=== PATIENT | female | born 1950 | race Caucasian/White ===

== ENCOUNTER 2017-07-27 03:14 | Emergency (ER) | payer OTHER ==
[2017-07-27 03:22] VITALS: BMI 28.1
--- NOTE | 2017-07-27 04:12 | ED PDOC ---
Arrival/HPI - History of Present Illness Time/Duration: > week Symptom Course: Unchanged Quality: Cramping Severity Level: 6 Context: Other (after meals) <Bridger Spears - Last Filed: 07/27/17 05:47> <August Bae DO - Last Filed: 07/27/17 06:36> - General Chief Complaint: Abdominal Pain Time Seen by Provider: 07/27/17 03:45 - History of Present Illness Narrative History of Present Illness (Text): 07/27/17 04:06 66F from [facility] w/ pmhx significant for cholecystectomy, HTN, HLD presents to [facility] ED w/ dull crampy mid-epigastric pain that started 1 week ago. Pain is worse immediately after eating. Patient has metallic taste in mouth after meals. Associated nausea, non-bloody, non-bilious vomiting. BM every 2 days which is normal for her. Denies recent sick contacts. Patient has had similar pain in the past that would resolve spontaneously. Patient had seen Dr. Clayton and was perscribed and H2 pelon, antibiotics cipro/flagyl and simethicone with minimal relief. Patient is scheduled to have appointment with GI on Saturday Denies: fevers, chills, chest pain, shortness of breath, diarrhea, numbness/ tingling in extremities, LE swelling PMH: HTN, HLD, boarderline diabetic (does not take any medications) PSH: Laparoscopic cholecystectomy ALL: NKDA SocialHx: From [facility], denies etoh, tobacco, recreational drug use. (Bridger Spears) Past Medical History - Provider Review Nursing Documentation Reviewed: Yes - Travel History Have you recently traveled outside [place] w/in the past 3 mons?: Yes - Past History Past History: Non-Contributing - Reproductive Menopause: Yes - Cardiac Hx Hypertension: Yes - Psychiatric Hx Substance Use: No <Bridger Spears - Last Filed: 07/27/17 05:47> Family/Social History - Physician Review Nursing Documentation Reviewed: Yes Family/Social History: Other (non-contributory) Smoking Status: no Hx Alcohol Use: No Hx Substance Use: No <Bridger Spears - Last Filed: 07/27/17 05:47> Allergies/Home Meds <Bridger Spears - Last Filed: 07/27/17 05:47> <Kathia STOVALLAugust - Last Filed: 07/27/17 06:36> Allergies/Adverse Reactions: Allergies No Known Allergies Allergy (Verified 07/27/17 03:22) Review of Systems - Physician Review All systems were reviewed & negative as marked: Yes - Review of Systems Constitutional: absent: Fevers, Night Sweats Eyes: absent: Vision Changes, Photophobia ENT: absent: Hearing Changes, Tinnitus, TMJ Pain Respiratory: absent: SOB, Cough, Sputum, Wheezing Cardiovascular: absent: Chest Pain, Palpitations, Calf Pain Gastrointestinal: Abdominal Pain (mid-epigastric), Nausea, Vomiting, Appetite Changes. absent: Diarrhea Genitourinary Female: absent: Dysuria, Frequency Musculoskeletal: absent: Arthralgias, Back Pain Skin: absent: Rash, Pruritis Neurological: absent: Headache, Dizziness, Focal Weakness Endocrine: Normal Hemo/Lymphatic: absent: Adenopathy Psychiatric: absent: Anxiety <Bridger Spears - Last Filed: 07/27/17 05:47> Physical Exam Vital Signs Reviewed: Yes Temperature: Afebrile Blood Pressure: Hypertensive Pulse: Regular Respiratory Rate: Apneic Appearance: Positive for: Well-Appearing, Non-Toxic Pain Distress: None Mental Status: Positive for: Alert and Oriented X 3 - Systems Exam Head: Present: Atraumatic, Normocephalic Extroacular Muscles: Present: EOMI Conjunctiva: Present: Normal Mouth: Present: Moist Mucous Membranes Neck: No: JVD Respiratory/Chest: Present: Clear to Auscultation. No: Respiratory Distress, Accessory Muscle Use Abdomen: Present: Tenderness (mid-epigastric tenderness). No: Distention, Peritoneal Signs Upper Extremity: Present: Normal Inspection, NORMAL PULSES Lower Extremity: Present: Normal Inspection, NORMAL PULSES Neurological: Present: GCS=15, CN II-XII Intact, Speech Normal Skin: Present: Warm Psychiatric: Present: Alert, Oriented x 3 <Bridger Spears Last Filed: 07/27/17 05:47> Vital Signs Temp Pulse Resp BP Pulse Ox 07/27/17 03:40 88 18 150/90 99 07/27/17 03:30 98.1 F 90 18 160/84 H 96 Medical Decision Making <Bridger Spears - Last Filed: 07/27/17 05:47> <August Bae DO - Last Filed: 07/27/17 06:36> ED Course and Treatment: 07/27/17 04:21 CBC/CMP/Lipase Anti-emetic- Zofran PO pepcid PO serial abd exams 07/27/17 05:47 K-Francesco is running no acute nausea/vomiting (Bridger Spears) - Lab Interpretations Narrative Lab Interpretation (Text): 07/27/17 05:00 Potassium 2.8- 40meq of PO potassium, 10meqK-Francesco x2 (Bridger Spears) Lab Results: 07/27/17 04:20 07/27/17 04:20 Lab Results 07/27/17 04:20: Sodium 141, Potassium 2.8 L*, Chloride 100, Carbon Dioxide 32, Anion Gap 12, BUN 13, Creatinine 0.8, Est GFR ( Amer) > 60, Est GFR (Non- Af Amer) > 60, Random Glucose 106, Calcium 10.4, Total Bilirubin 0.3, AST 28, ALT 20, Alkaline Phosphatase 74, Total Protein 7.2, Albumin 3.7, Globulin 3.5, Albumin/Globulin Ratio 1.1, Lipase 128 07/27/17 04:20: WBC 8.8, RBC 4.16, Hgb 10.3 L, Hct 32.4 L, MCV 77.9 L, MCH 24.8 L, MCHC 31.8, RDW 15.2 H, Plt Count 370, MPV 9.3, Gran % 55.5, Lymph % (Auto) 33.9, [place] % (Auto) 6.5 H, Eos % (Auto) 3.5, Baso % (Auto) 0.6, Gran # 4.90, Lymph # (Auto) 3.0, [place] # (Auto) 0.6, Eos # (Auto) 0.3, Baso # (Auto) 0.05 - Medication Orders Current Medication Orders: Potassium Chloride (Potassium Chloride 10 Meq/100 Ml) 10 meq in 100 mls @ 50 mls/hr IVPB Q2H VICTOR MANUEL Stop: 07/27/17 08:59 Last Admin: 07/27/17 05:01 Dose: 50 mls/hr eMAR Start Stop Document 07/27/17 05:01 CAMILO (Rec: 07/27/17 05:01 [facility] [id number]) Intravenous Solution Start Date 07/27/17 Start Time 05:01 End Date 07/27/17 End time 07:01 Total Infusion Time 120 Discontinued Medications Famotidine (Pepcid) 40 mg PO STAT STA Stop: 07/27/17 04:03 Last Admin: 07/27/17 04:30 Dose: 40 mg Ondansetron HCl (Zofran Tab) 8 mg PO STAT STA Stop: 07/27/17 04:02 Last Admin: 07/27/17 04:30 Dose: 8 mg Potassium Chloride (K-Dur 20 Meq Er Tab) 40 meq PO STAT STA Stop: 07/27/17 04:51 Last Admin: 07/27/17 05:01 Dose: 40 meq - 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 MIKEY has examined the patient and agrees with the treatment plan. <Bridger Spears - Last Filed: 07/27/17 05:47> Disposition/Present on Arrival - Present on Arrival Any Indicators Present on Arrival: No History of DVT/PE: No History of Uncontrolled Diabetes: No Urinary Catheter: No History of Decub. Ulcer: No History Surgical Site Infection Following: None <Bridger Spears - Last Filed: 07/27/17 05:47> - Disposition Have Diagnosis and Disposition been Completed?: Yes Disposition Time: 07:00 <August Bae DO - Last Filed: 07/27/17 06:36> - Disposition Diagnosis: Gastritis, Hypokalemia Disposition: HOME/ ROUTINE Condition: IMPROVED Prescriptions: Ondansetron HCl [Zofran] 4 mg PO Q6 PRN #20 tablet PRN Reason: Nausea/Vomiting Referrals: Omar Clayton MD [Primary Care Provider] - Follow up with primary Forms: [employer] (Mosotho)
[2017-07-27 04:39] LABS: BASO # 0.05 K/mm3 (0.0-2.0); BASO % 0.6 % (0.0-3.0); EOS # 0.3 (0.0-0.7); EOS % 3.5 % (1.5-5.0); GRAN # 4.9 (1.4-6.5); GRAN % 55.5 % (50.0-68.0); HEMOGLOBIN 10.3 g/dL (12.0-16.0); LYMPH % 33.9 % (22.0-35.0); MEAN CELL VOLUME 77.9 fl (80.0-105.0); MEAN CORPUSCULAR HEMOGLOBIN 24.8 pg (25.0-35.0); MEAN CORPUSCULAR HGB CONC 31.8 g/dl (31.0-37.0); MEAN PLATELET VOLUME 9.3 fl (7.0-11.0); MONO # 0.6 (0.1-0.6); MONO % 6.5 % (1.0-6.0); RBC 4.16 10^6/uL (3.5-6.1); RED CELL DISTRIBUTION WIDTH 15.2 % (11.5-14.5); WHITE BLOOD COUNT 8.8 10^3/ul (4.5-11.0)
[2017-07-27 04:49] LABS: ALB/GLOB RATIO 1.1 (1.1-1.8); ALBUMIN 3.7 g/dL (3.0-4.8); ALT/SGPT 20 U/L (7-56); AST/SGOT 28 U/L (14-36); BLOOD UREA NITROGEN 13 mg/dL (7-21); CALCIUM 10.4 mg/dL (8.4-10.5); GFR AFRICAN-AMERICAN > 60; GFR NON-AFRICAN AMERICAN > 60; LIPASE 128 U/L (23-300)
[2017-07-27] MEDS ORDERED: Potassium Chloride 20 mEq ER Tab PO STA (04:50)
--- NOTE | 2017-07-27 07:33 | ED PDOC ---
Physical Exam Vital Signs Temp Pulse Resp BP Pulse Ox 07/27/17 05:15 84 18 156/88 H 99 07/27/17 03:40 88 18 150/90 99 07/27/17 03:30 98.1 F 90 18 160/84 H 96 Medical Decision Making ED Course and Treatment: 07/27/17 07:31 Patient endorsed to me from previous shift. Patient's history reviewed with family. Family states patient experiences epigastric abdominal pain AFTER EATING for past week. She has prior history reportedly of "heartburn" and describes symptoms as similar to this. She denies chest "pain", she denies any bloody or dark urine or stool. Was recently treated by her PMD for gastritis. On re-exam, patient resting comfortably, receiving iv kcl replacement. Treatment plan reviewed with patient's family, plan to reassess patient with serial exams. 07/27/17 08:32 Potassium infusions completed. Patient re-examined. She has no pain. States no chest pain or shortness of breath and no exertional symptoms. Patient with no nausea or vomiting. Daughter states she has follow-up appointment this Saturday for endoscopy. I have advised recheck of her potassium levels. Patient and family express understanding. Discharge instructions provided by Dr. Bae. - Lab Interpretations Lab Results: 07/27/17 04:20 07/27/17 04:20 Lab Results 07/27/17 04:20: Sodium 141, Potassium 2.8 L*, Chloride 100, Carbon Dioxide 32, Anion Gap 12, BUN 13, Creatinine 0.8, Est GFR ( Amer) > 60, Est GFR (Non- Af Amer) > 60, Random Glucose 106, Calcium 10.4, Total Bilirubin 0.3, AST 28, ALT 20, Alkaline Phosphatase 74, Total Protein 7.2, Albumin 3.7, Globulin 3.5, Albumin/Globulin Ratio 1.1, Lipase 128 07/27/17 04:20: WBC 8.8, RBC 4.16, Hgb 10.3 L, Hct 32.4 L, MCV 77.9 L, MCH 24.8 L, MCHC 31.8, RDW 15.2 H, Plt Count 370, MPV 9.3, Gran % 55.5, Lymph % (Auto) 33.9, [place] % (Auto) 6.5 H, Eos % (Auto) 3.5, Baso % (Auto) 0.6, Gran # 4.90, Lymph # (Auto) 3.0, [place] # (Auto) 0.6, Eos # (Auto) 0.3, Baso # (Auto) 0.05 - Medication Orders Current Medication Orders: Potassium Chloride (Potassium Chloride 10 Meq/100 Ml) 10 meq in 100 mls @ 50 mls/hr IVPB Q2H VICTOR MANUEL Stop: 07/27/17 08:59 Last Admin: 07/27/17 06:39 Dose: 50 mls/hr eMAR Start Stop Document 07/27/17 06:39 CAMILO (Rec: 07/27/17 06:39 CAMILO [id number]) Intravenous Solution Start Date 07/27/17 Start Time 06:39 End Date 07/27/17 End time 08:39 Total Infusion Time 120 Discontinued Medications Famotidine (Pepcid) 40 mg PO STAT STA Stop: 07/27/17 04:03 Last Admin: 07/27/17 04:30 Dose: 40 mg Ondansetron HCl (Zofran Tab) 8 mg PO STAT STA Stop: 07/27/17 04:02 Last Admin: 07/27/17 04:30 Dose: 8 mg Potassium Chloride (K-Dur 20 Meq Er Tab) 40 meq PO STAT STA Stop: 07/27/17 04:51 Last Admin: 07/27/17 05:01 Dose: 40 meq Disposition/Present on Arrival - Present on Arrival Any Indicators Present on Arrival: No History of DVT/PE: No History of Uncontrolled Diabetes: No Urinary Catheter: No History of Decub. Ulcer: No History Surgical Site Infection Following: None - Disposition Have Diagnosis and Disposition been Completed?: Yes Diagnosis: Gastritis, Hypokalemia Disposition: HOME/ ROUTINE Disposition Time: 08:34 Patient Plan: Discharge Patient Problems: Current Active Problems Problem Status Onset Gastritis Acute Hypokalemia Acute Condition: GOOD Discharge Instructions (ExitCare): Gastritis, Hypokalemia (DC) Additional Instructions: Thank you for letting us take care of you today. The emergency medical care you received today was directed at your acute symptoms. If you were prescribed any medication, please fill it and take as directed. It may take several days for your symptoms to resolve. Return to the Emergency Department if your symptoms worsen, do not improve, or if you have any other problems. Please contact your doctor or call one of the physicians/clinics you have been referred to that are listed on the Patient Visit Information form that is included in your discharge packet. Bring any paperwork you were given at discharge with you along with any medications you are taking to your follow up visit. Our treatment cannot replace ongoing medical care by a primary care provider (PCP) outside of the emergency department. Thank you for allowing the [facility] team to be part of your care today. Follow up with your doctor in 2-3 days for re-evaluation and further management. Prescriptions: Ondansetron HCl [Zofran] 4 mg PO Q6 PRN #20 tablet PRN Reason: Nausea/Vomiting Referrals: Omar Clayton MD [Primary Care Provider] - Follow up with primary Forms: [employer] (Turkish)
[2017-07-27 08:39] VITALS: BP 137/80; PULSE 77; RESP 19; TEMP 97.8
[2017-07-27 08:43] VITALS: O2SAT 97
--- NOTE | 2017-07-27 16:49 | CARD ---
APPROVED REPORT EKG Measurement Heart [id number] <Conclusion> Normal sinus rhythm Minimal voltage criteria for LVH, may be normal variant Nonspecific ST and T wave abnormality Abnormal ECG
== END 2017-07-27 08:42 | disposition home or self-care (01) ==
LOC: ED 03:14
DX: K29.70 Gastritis, unspecified, without bleeding (principal); E87.6 Hypokalemia; I10 Essential (primary) hypertension; Z90.49 Acquired absence of other specified parts of digestive tract
CPT/HCPCS: 80053; 83690; 85025; 93005; 96360; 96361; 99284; J3480

== ENCOUNTER 2017-09-24 20:15 | Emergency (ER) | payer OTHER ==
[2017-09-24 20:35] VITALS: BMI 28.3
--- NOTE | 2017-09-24 21:13 | ED PDOC ---
Arrival/HPI - General Chief Complaint: Chest Pain Time Seen by Provider: 09/24/17 20:19 Historian: Patient - History of Present Illness Narrative History of Present Illness (Text): 09/24/17 20:40 Emelia Grant is a 67 year old female, whose past medical history includes hypertension, hyperlipidemia, and gastritis, who presents to the emergency department complaining of chest pressure since yesterday evening. Patient also reports associated palpitations. Patient denies any fever, chills, shortness of breath, abdominal pain, nausea, vomiting, diarrhea, urinary symptoms, back pain , neck pain, headache, dizziness, or any other complaints. Time/Duration: Other (yesterday) Symptom Onset: Gradual Symptom Course: Unchanged Quality: Pressure Activities at Onset: Light Context: Home Past Medical History - Provider Review Nursing Documentation Reviewed: Yes - Past History Past History: Non-Contributing - Cardiac Hx [place]: No Hx Hypertension: Yes - Pulmonary Hx Sleep Apnea: No - Neurological Hx Neurological Disorder: No HX Cerebrovascular Accident: No Hx Transient Ischemic Attacks (TIA): No - Renal Hx Renal Disorder: Yes Hx Kidney Stones: Yes (REMOVED) - Hematological/Oncological Hx Blood Transfusions: No - Musculoskeletal/Rheumatological Hx Back Pain: No Hx Falls: No Hx Fractures: No - Gastrointestinal Hx Gastrointestinal Disorders: No Hx Gastroesophageal Reflux: Yes - Psychiatric Hx Substance Use: No - Surgical History Hx Cholecystectomy: Yes - Anesthesia Hx Anesthesia: No (IV SEDATION ONLY) Hx Anesthesia Reactions: No Hx Malignant Hyperthermia: No Family/Social History - Physician Review Nursing Documentation Reviewed: Yes Family/Social History: Unknown Family HX Smoking Status: no Hx Alcohol Use: No Hx Substance Use: No Allergies/Home Meds Allergies/Adverse Reactions: Allergies No Known Allergies Allergy (Verified 07/27/17 03:22) Home Medications: Home Meds Medication Instructions Recorded Confirmed Aspirin [Ecotrin] 81 mg PO DAILY 09/24/17 09/24/17 Omeprazole 40 mg PO DAILY 09/24/17 09/24/17 amLODIPine [Norvasc] 5 mg PO DAILY 09/24/17 09/24/17 Review of Systems - Physician Review All systems were reviewed & negative as marked: Yes - Review of Systems Constitutional: Normal. absent: Fevers Eyes: Normal ENT: Normal Respiratory: Normal. absent: SOB, Cough Cardiovascular: Chest Pain, Palpitations Gastrointestinal: Normal. absent: Abdominal Pain, Diarrhea, Nausea, Vomiting Genitourinary Female: Normal. absent: Dysuria, Frequency, Hematuria, Urine Output Changes Musculoskeletal: Normal. absent: Back Pain, Neck Pain Skin: Normal. absent: Rash Neurological: Normal. absent: Headache, Dizziness Endocrine: Normal Hemo/Lymphatic: Normal Psychiatric: Normal Physical Exam Vital Signs Reviewed: Yes Vital Signs Temp Pulse Resp BP Pulse Ox 09/24/17 22:19 97.9 F 75 16 135/76 99 09/24/17 20:30 99.0 F 74 18 139/75 100 Temperature: Afebrile Blood Pressure: Normal Pulse: Regular Respiratory Rate: Normal Appearance: Positive for: Well-Appearing, Non-Toxic, Comfortable Pain Distress: None Mental Status: Positive for: Alert and Oriented X 3 - Systems Exam Head: Present: Atraumatic, Normocephalic Pupils: Present: PERRL Extroacular Muscles: Present: EOMI Conjunctiva: Present: Normal Mouth: Present: Moist Mucous Membranes Neck: Present: Normal Range of Motion Respiratory/Chest: Present: Clear to Auscultation, Good Air Exchange. No: Respiratory Distress, Accessory Muscle Use Cardiovascular: Present: Regular Rate and Rhythm, Normal S1, S2. No: Murmurs Abdomen: No: Tenderness, Distention, Peritoneal Signs Back: Present: Normal Inspection Upper Extremity: Present: Normal Inspection. No: Cyanosis, Edema Lower Extremity: Present: Normal Inspection. No: Edema Neurological: Present: GCS=15, CN II-XII Intact, Speech Normal Skin: Present: Warm, Dry, Normal Color. No: Rashes Psychiatric: Present: Alert, Oriented x 3, Normal Insight, Normal Concentration Medical Decision Making ED Course and Treatment: 09/24/17 20:40 Impression: 67 year old female complaining of chest pressure and palpitations since yesterday evening. Plan: -- EKG -- Chest X-Ray -- Labs, cardiac enzymes -- Urinalysis -- Reassess and disposition Prior Visits: Notes and results from previous visits were reviewed. On 07/27/2017, pt was seen in the emergency department for epigastric pain, nausea, and vomiting. Pt was d/c home. Progress Notes: Reviewed EKG, NSR at 76 bpm. Non-specific ST/T wave changes. 09/24/17 21:51 Chest X-Ray reviewed, shows no acute processes. 09/24/17 22:08 Discussed results and hospital observation plan with pt, pt states she does not wish to stay in the ER. Pt will sign out against medical advice. The patient declines admission, and wishes to leave the Emergency Department. This action is against my medical advice to the patient and the decision was made with informed refusal. The patient was told that admission is necessary and a full explanation of the rationale was given. The risks of leaving were explained to the patient and include, but are not limited to, worsening of known or currently unknown conditions, permanent disability and from undiagnosed or untreated conditions The patient has the capacity to make this informed decision and understands the clinical situation and my explanation of the risks of leaving. The patient voluntarily accepts these risks, and a signed AMA form documenting our conversation was obtained. The patient was given the opportunity to ask questions and reconsider. The patient was encouraged to return to the Emergency Department at any time for further care. - Lab Interpretations Lab Results: 09/24/17 21:09 09/24/17 21:09 Lab Results 09/24/17 21:10: Urine Color Straw, Urine Appearance Clear, Urine pH 7.0, Ur Specific [place] 1.010, Urine Protein Negative, Urine Glucose (UA) Negative, Urine Ketones Negative, Urine Blood Negative, Urine Nitrate Negative, Urine Bilirubin Negative, Urine Urobilinogen 0.2, Ur Leukocyte Esterase Negative 09/24/17 21:09: Sodium 145, Potassium 3.4 L, Chloride 105, Carbon Dioxide 25, Anion Gap 18, BUN 11, Creatinine 0.9, Est GFR ( Amer) > 60, Est GFR (Non- Af Amer) > 60, Random Glucose 125 H, Calcium 9.5, Magnesium 1.9, Total Bilirubin 0.1 L, AST 17, ALT 28, Alkaline Phosphatase 88, Lactate Dehydrogenase 384, Total Creatine Kinase 35, Troponin I < 0.01, Total Protein 7.6, Albumin 4.3 , Globulin 3.2, Albumin/Globulin Ratio 1.3 09/24/17 21:09: WBC 9.8, RBC 4.26, Hgb 10.6 L, Hct 32.6 L, MCV 76.5 L, MCH 24.9 L, MCHC 32.5, RDW 16.6 H, Plt Count 418, MPV 9.6, Gran % 57.4, Lymph % (Auto) 33.9, [place] % (Auto) 5.7, Eos % (Auto) 2.8, Baso % (Auto) 0.2, Gran # 5.61, Lymph # (Auto) 3.3, [place] # (Auto) 0.6, Eos # (Auto) 0.3, Baso # (Auto) 0.02 I have reviewed the lab results: Yes - RAD Interpretation Radiology Orders: 09/24/17 20:45 CHEST PORTABLE [RAD] Stat Technical Documentation Specialist: ED Physician - EKG Interpretation Interpreted by ED Physician: Yes Type: 12 lead EKG - Scribe Statement The provider has reviewed the documentation as recorded by the Corina Feliz Provider Scribe Attestation: All medical record entries made by the Scribe were at my direction and personally dictated by me. I have reviewed the chart and agree that the record accurately reflects my personal performance of the history, physical exam, medical decision making, and the department course for this patient. I have also personally directed, reviewed, and agree with the discharge instructions and disposition. Disposition/Present on Arrival - Present on Arrival Any Indicators Present on Arrival: No History of DVT/PE: No History of Uncontrolled Diabetes: No Urinary Catheter: No History of Decub. Ulcer: No History Surgical Site Infection Following: None - Disposition Have Diagnosis and Disposition been Completed?: Yes Diagnosis: Chest pain Disposition: AGAINST MEDICAL ADVICE Disposition Time: 22:10 Condition: UNKNOWN Discharge Instructions (ExitCare): Chest Pain (ED) Referrals: Omar Clayton MD [Primary Care Provider] - Follow up with primary Forms: [id number] (Guinean)
[2017-09-24 21:23] LABS: BASO # 0.02 K/mm3 (0.0-2.0); BASO % 0.2 % (0.0-3.0); EOS # 0.3 (0.0-0.7); EOS % 2.8 % (1.5-5.0); GRAN # 5.61 (1.4-6.5); GRAN % 57.4 % (50.0-68.0); HEMOGLOBIN 10.6 g/dL (12.0-16.0); LYMPH # 3.3 (1.2-3.4); LYMPH % 33.9 % (22.0-35.0); MEAN CELL VOLUME 76.5 fl (80.0-105.0); MEAN CORPUSCULAR HEMOGLOBIN 24.9 pg (25.0-35.0); MEAN CORPUSCULAR HGB CONC 32.5 g/dl (31.0-37.0); MEAN PLATELET VOLUME 9.6 fl (7.0-11.0); MONO # 0.6 (0.1-0.6); MONO % 5.7 % (1.0-6.0); RBC 4.26 10^6/uL (3.5-6.1); RED CELL DISTRIBUTION WIDTH 16.6 % (11.5-14.5); WHITE BLOOD COUNT 9.8 10^3/ul (4.5-11.0)
[2017-09-24 21:23] LABS: URINE BILIRUBIN NEGATIVE (NEGATIVE); URINE BLOOD NEGATIVE (NEGATIVE); URINE GLUCOSE (UA) NEGATIVE (NEGATIVE); URINE LEUKOCYTE ESTERASE NEGATIVE Leu/uL (NEGATIVE); URINE UROBILINOGEN 0.2 E.U./dL (<1 E.U./dL)
[2017-09-24 21:27] LABS: URINE APPEARANCE CLEAR (CLEAR); URINE COLOR STRAW (YELLOW); URINE PROTEIN NEGATIVE mg/dL (<30 mg/dL)
[2017-09-24 21:27] LABS: ALB/GLOB RATIO 1.3 (1.1-1.8); ALBUMIN 4.3 g/dL (3.0-4.8); ALT/SGPT 28 U/L (7-56); AST/SGOT 17 U/L (14-36); BLOOD UREA NITROGEN 11 mg/dL (7-21); CALCIUM 9.5 mg/dL (8.4-10.5); GFR AFRICAN-AMERICAN > 60; GFR NON-AFRICAN AMERICAN > 60
[2017-09-24 21:38] LABS: TROPONIN I < 0.01 ng/mL
[2017-09-24 22:20] VITALS: BP 135/76; PULSE 75; RESP 16; TEMP 97.9; O2SAT 99
--- NOTE | 2017-09-25 08:07 | RAD ---
HISTORY: Chest pain. COMPARISON: No prior. FINDINGS: LUNGS: No active pulmonary disease. PLEURA: No significant pleural effusion identified, no pneumothorax apparent. CARDIOVASCULAR: No radiographic findings to suggest acute or significant cardiovascular disease. OSSEOUS STRUCTURES: No significant abnormalities. VISUALIZED UPPER ABDOMEN: Normal. OTHER FINDINGS: None. IMPRESSION: No active disease.
--- NOTE | 2017-09-25 13:12 | CARD ---
APPROVED REPORT EKG Measurement Heart [id number] <Conclusion> Normal sinus rhythm Minimal voltage criteria for LVH, may be normal variant Nonspecific ST abnormality Mildly prolonged QTc
== END 2017-09-24 22:19 | disposition left against medical advice (07) ==
LOC: ED 20:15
DX: R07.9 Chest pain, unspecified (principal); I10 Essential (primary) hypertension; E78.5 Hyperlipidemia, unspecified; K21.9 Gastro-esophageal reflux disease without esophagitis